=== PATIENT | female | born 1935 | race Hispanic/Latino ===

== ENCOUNTER 2017-01-21 04:24 | Observation (INO) | payer MEDICARE ==
--- NOTE | 2017-01-21 04:37 | C.PDOC ---
History Of Present Illness Patient woke up and felt her heart racing and that her blood pressure was elevated. No chest pain, no visual changes. Speaking. in complete sentences No fever, chills, nausea or vomiting. Time Seen by Provider: 01/21/17 04:37 History Per: Patient History/Exam Limitations: no limitations Onset/Duration Of Symptoms: Mins Current Symptoms Are (Timing): Better Associated Symptoms: Dizziness, Other (palpitations). denies: Chest Pain, Dyspnea Quality Of Symptoms: Rapid Heart Rate Severity: Moderate Pain Scale Rating Of: 4 Exacerbating Factor(s): Pos: None Recent travel outside of the [place]: No Additional History Per: Family Past Medical History Reviewed: Historical Data, Nursing Documentation, Vital Signs Vital Signs: Last Vital Signs Temp 97.7 F 01/21/17 04:30 Pulse 74 01/21/17 05:54 Resp 19 01/21/17 05:54 BP 155/68 H 01/21/17 05:54 Pulse Ox 97 01/21/17 05:54 - Medical History PMH: HTN, Hypercholesterolemia - [facility] Procedures LEFT HEART CARDIAC CATH (04/15/13) LT HEART ANGIOCARDIOGRAM (04/15/13) Family History: States: No Known Family Hx - Social History Hx Tobacco Use: No Hx Alcohol Use: No Hx Substance Use: No - Immunization History Hx Tetanus Toxoid Vaccination: No Hx Influenza Vaccination: No Hx Pneumococcal Vaccination: No Review Of Systems Constitutional: Negative for: Fever, Chills Eyes: Negative for: Redness ENT: Negative for: Throat Pain Cardiovascular: Positive for: Palpitations. Negative for: Chest Pain Respiratory: Negative for: Shortness of Breath Gastrointestinal: Negative for: Nausea, Vomiting, Abdominal Pain Genitourinary: Negative for: Dysuria Musculoskeletal: Negative for: Back Pain Skin: Negative for: Rash, Lesions Neurological: Negative for: Weakness Psych: Negative for: Anxiety Physical Exam - Physical Exam Appears: Non-toxic, No Acute Distress Skin: Warm, Dry Head: Normacephalic Eye(s): bilateral: Normal Inspection Oral Mucosa: Moist Neck: Trachea Midline, Supple Chest: Symmetrical Cardiovascular: Rhythm Regular Respiratory: No Rales, No Rhonchi, No Wheezing Gastrointestinal/Abdominal: Soft, No Tenderness, No Distention Back: No CVA Tenderness Extremity: Normal ROM, No Tenderness Extremity: Bilateral: Atraumatic, No Pedal Edema, Normal Color And Temperature, Normal ROM Pulses: Left Dorsalis Pedis: Normal, Right Dorsalis Pedis: Normal Neurological/Psych: Oriented x3, Normal Speech, Normal Cognition Gait: Steady ED Course And Treatment - Laboratory Results Result Diagrams: 01/21/17 05:18 01/21/17 05:04 ECG: Interpreted By Me, Viewed By Me ECG Rhythm: Sinus Rhythm (107), Nonspecific Changes O2 Sat by Pulse Oximetry: 98 Pulse Ox Interpretation: Normal - Radiology CXR: Interpreted by Me, Viewed By Me CXR Interpretation: No: Infiltrates, Fracture, Pnemothorax Disposition Discussed With : Freeman Rossi Comment: accepted the pt on his service and took over the care at 5:58AM Doctor Will See Patient In The: ED Counseled Patient/Family Regarding: Studies Performed, Diagnosis - Disposition Disposition: HOSPITALIZED Disposition Time: 04:37 Condition: FAIR - POA Present On Arrival: Poor Glycemic Control - Clinical Impression Clinical Impression: Abnormal blood pressure, Hypertension, Palpitations Decision To Admit - Pt Status Changed To: Hospital Disposition Of: Observation - . Bed Request Type: Telemetry Admitting Physician: Freeman Rossi Patient Diagnosis: Abnormal blood pressure, Hypertension, Palpitations
[2017-01-21] MEDS ORDERED: Labetalol 5 mg/ml Inj 20ML IV STA (04:49)
[2017-01-21 05:23] LABS: BASO # 0.1 K/uL (0.0-0.2); BASO % 0.9 % (0.0-2.0); EOS # 0.1 K/uL (0.0-0.7); EOS % 1.5 % (0.0-4.0); HEMATOCRIT 36.3 % (34.0-47.0); LYMPH # 2.8 K/uL (1.0-4.3); LYMPH % 30.8 % (20.0-40.0); MEAN CELL VOLUME 89.5 fL (81.0-99.0); MEAN CORPUSCULAR HEMOGLOBIN 30.1 pg (27.0-31.0); MEAN CORPUSCULAR HGB CONC 33.6 g/dL (33.0-37.0); MEAN PLATELET VOLUME 9.3 fL (7.2-11.7); MONO # 0.6 K/uL (0.0-0.8); MONO % 6.6 % (0.0-10.0); RED CELL DISTRIBUTION WIDTH 13.4 % (11.5-14.5); WHITE BLOOD COUNT 9.1 K/uL (4.8-10.8)
[2017-01-21 05:23] LABS: CHLORIDE 101 mmol/L (98-107)
[2017-01-21 05:24] LABS: POTASSIUM 3.7 mmol/L (3.6-5.2); SODIUM 139 mmol/L (132-148)
[2017-01-21 05:26] LABS: ALB/GLOB RATIO 1.3 (1.0-2.1); AST/SGOT 34 U/L (14-36); BILIRUBIN,TOTAL 0.9 mg/dL (0.2-1.3); BLOOD UREA NITROGEN 20 mg/dL (7-17); CARBON DIOXIDE 23 mmol/L (22-30); GFR AFRICAN-AMERICAN > 60; TOTAL PROTEIN 7.8 g/dL (6.3-8.3)
[2017-01-21 05:27] LABS: ALKALINE PHOSPHATASE 48 U/L (38-126); ALT/SGPT 26 U/L (9-52); CALCIUM 9.5 mg/dl (8.6-10.4); GLUCOSE,RANDOM 128 mg/dL (65-105)
[2017-01-21 05:29] LABS: RBC URINE 1 /hpf (0-3); URINE BILIRUBIN NEGATIVE (NEGATIVE); URINE BLOOD 1+ (NEGATIVE); URINE COLOR Yellow (YELLOW); URINE GLUCOSE (UA) NORMAL (Normal); URINE KETONE NEGATIVE (NEGATIVE); URINE LEUKOCYTE ESTERASE TRACE Leu/uL (Negative); URINE PROTEIN 1+ mg/dL (NEGATIVE); URINE UROBILINOGEN NORMAL mg/dL (0.2-1.0); WBC URINE 3 /hpf (0-5)
--- NOTE | 2017-01-21 09:38 | RAD ---
PROCEDURE: CHEST RADIOGRAPH, 1 VIEW HISTORY: chest pain COMPARISON: Comparison chest dated 05/01/2016 FINDINGS: LUNGS: Clear. PLEURA: No pneumothorax or pleural fluid seen. CARDIOVASCULAR: Mild calcification of the aortic valve. OSSEOUS STRUCTURES: Mild degenerative changes both shoulder girdles. Mild multilevel degenerative spondylosis of the thoracic spine. VISUALIZED UPPER ABDOMEN: Normal. OTHER FINDINGS: None. IMPRESSION: No active disease.
--- NOTE | 2017-01-21 17:49 | CP.PCM.HP ---
History of Present Illness - History of Present Illness History of Present Illness: Chief complaint: Palpitations History present illness: 81-year-old female with history of hypertension hypercholesteremia renal insufficiency came to the emergency room with the sudden onset of palpitation. Patient was doing well. Suddenly around 11 PM patient started having some discomfort. The blood pressure was noted to be normal at the time, later at midnight the patient again suddenly developed a significant palpitation, and the midchest. At the time the blood pressure was noted to be more than 200, immediately patient was taken to the emergency room by the family member. In the emergency room patient was evaluated, at the time patient did not have any chest pain, palpitation was not there. She felt slightly nauseated, and minimal dizziness, but no chest pain in the emergency room. Patient did not have any hospitalization in the past. Not clear at this time but it initiated. She went to eat outside with her friend yesterday. Past medical history: Hypertension high cholesterol renal insufficiency Allergy: No known drug allergy Personal history: Nonsmoker nonalcoholic. Family history: Father natural cause, diabetes. Mother at the age of 75 with a heart disease. Patient's current medication amlodipine, metoprolol, Benicar hydrochlorothiazide , fenofibrate Review of system: Currently patient is having no headache or visual symptom no chest pain or shortness of breath denies any nausea vomiting, no leg swelling Vital signs reviewed No neck vein distention noted Chest good air entry bilaterally, no wheezing or rales noted CVS regular heart sound, no murmur noted Abdomen soft, nontender. 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 Assessment and recommendation: 84-year-old female with history of hypertension and hypercholesteremia renal insufficiency admitted with palpitation. Sudden onset heart arrhythmias. Underlying atrial arrhythmia cannot be ruled out. Cardiology valuation. We will get EP evaluation if needed. We'll monitor the heart enzymes. I will follow the patient Present on Admission - Present on Admission Any Indicators Present on Admission: No History of DVT/PE: No History of Uncontrolled Diabetes: No Urinary Catheter: No Decubitus Ulcer Present: No Past Patient History - Past Medical History & Family History Past Medical History?: Yes - Past Social History Smoking Status: Never Smoked - CARDIAC Hx Cardiac Disorders: Yes Hx Hypercholesterolemia: Yes Hx Hypertension: Yes - PULMONARY Hx Respiratory Disorders: No - NEUROLOGICAL Hx Neurological Disorder: No - HEENT Hx HEENT Problems: Yes Hx Cataracts: Yes - RENAL Hx Chronic Kidney Disease: No - ENDOCRINE/METABOLIC Hx Endocrine Disorders: No - HEMATOLOGICAL/ONCOLOGICAL Hx Blood Disorders: No - INTEGUMENTARY Hx Dermatological Problems: No - MUSCULOSKELETAL/RHEUMATOLOGICAL Hx Musculoskeletal Disorders: No Hx Falls: No - GASTROINTESTINAL Hx Gastrointestinal Disorders: No - GENITOURINARY/GYNECOLOGICAL Hx Genitourinary Disorders: No - PSYCHIATRIC Hx Psychophysiologic Disorder: No Hx Substance Use: No - SURGICAL HISTORY Hx Surgeries: Yes Hx Cataract Extraction: Yes - ANESTHESIA Hx Anesthesia: Yes Hx Anesthesia Reactions: No Hx Malignant Hyperthermia: No Meds Allergies/Adverse Reactions: Allergies Allergy/AdvReac Type Severity Reaction Status Date / Time No Known Allergies Allergy Verified 04/05/13 11:03 Results - Vital Signs Recent Vital Signs: Last Vital Signs Temp 98.1 F 01/21/17 15:05 Pulse 68 01/21/17 15:05 Resp 20 01/21/17 15:05 BP 107/61 01/21/17 15:05 Pulse Ox 95 01/21/17 15:05 - Labs Result Diagrams: 01/21/17 05:18 01/21/17 05:04
[2017-01-22 06:30] LABS: BASO % 0.5 % (0.0-2.0); EOS # 0.2 K/uL (0.0-0.7); EOS % 2.4 % (0.0-4.0); HEMATOCRIT 33.6 % (34.0-47.0); LYMPH # 3.9 K/uL (1.0-4.3); LYMPH % 45.4 % (20.0-40.0); MEAN CELL VOLUME 89.4 fL (81.0-99.0); MEAN CORPUSCULAR HEMOGLOBIN 30.2 pg (27.0-31.0); MEAN CORPUSCULAR HGB CONC 33.8 g/dL (33.0-37.0); MEAN PLATELET VOLUME 9.6 fL (7.2-11.7); MONO # 0.6 K/uL (0.0-0.8); MONO % 6.6 % (0.0-10.0); RED CELL DISTRIBUTION WIDTH 13.6 % (11.5-14.5); WHITE BLOOD COUNT 8.6 K/uL (4.8-10.8)
[2017-01-22 07:15] LABS: CHLORIDE 103 mmol/L (98-107); POTASSIUM 3.6 mmol/L (3.6-5.2); SODIUM 141 mmol/L (132-148)
[2017-01-22 07:17] LABS: BILIRUBIN,TOTAL 0.5 mg/dL (0.2-1.3); CARBON DIOXIDE 26 mmol/L (22-30); GFR AFRICAN-AMERICAN > 60
[2017-01-22 07:18] LABS: ALB/GLOB RATIO 1.1 (1.0-2.1); ALKALINE PHOSPHATASE 39 U/L (38-126); ALT/SGPT 27 U/L (9-52); AST/SGOT 20 U/L (14-36); BLOOD UREA NITROGEN 16 mg/dL (7-17); CALCIUM 8.8 mg/dl (8.6-10.4); GLUCOSE,RANDOM 93 mg/dL (65-105); TOTAL PROTEIN 6.5 g/dL (6.3-8.3)
[2017-01-22 11:52] VITALS: RESP 20
--- NOTE | 2017-01-22 16:52 | CP.PCM.PN ---
Subjective - Date & Time of Evaluation Date of Evaluation: 01/22/17 Time of Evaluation: 16:51 - Subjective Subjective: DISCUSSED PLAN FOR DISPOSITION WITH DR. GUERRA. WILL D/C PT HOME ONCE SEEN AND CLEARED BY DR. NASSAR. LEFT MESSAGE FOR DR. 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 NO HOME SERVICES OR NEEDS NECESSARY PER CM ASSESSMENT. WILL F/U WITH DR. NASSAR AND PLAN FOR D/C HOME TOMORROW. NO FURTHER ORDERS. Objective - Vital Signs/Intake and Output Vital Signs (last 24 hours): Temp Pulse Resp BP Pulse Ox 98.3 F 72 20 146/84 96 01/22/17 15:05 01/22/17 15:05 01/22/17 15:05 01/22/17 15:05 01/22/17 15:05 Intake and Output: 01/22/17 01/22/17 06:59 18:59 Intake Total 600 400 Balance 600 400 - Medications Medications: Current Medications Aspirin (Aspirin Chewable) 81 mg PO DAILY [facility] Last Admin: 01/22/17 09:07 Dose: 81 mg Heparin Sodium (Porcine) (Heparin) 5,000 units SC Q8 [facility] Last Admin: 01/22/17 14:26 Dose: 5,000 units Metoprolol Tartrate (Lopressor) 25 mg PO BID [facility] Last Admin: 01/22/17 09:08 Dose: 25 mg Rosuvastatin Calcium (Crestor) 10 mg PO HS [facility] Last Admin: 01/21/17 22:49 Dose: 10 mg - Labs Labs: 01/22/17 06:07 01/22/17 06:07 PT 10.7 SECONDS (9.7-12.2) 01/21/17 05:04 INR 1.0 01/21/17 05:04 APTT 30 SECONDS (21-34) 01/21/17 05:04
--- NOTE | 2017-01-22 21:09 | CP.PCM.PN ---
Subjective - Date & Time of Evaluation Date of Evaluation: 01/22/17 Time of Evaluation: 21:08 - Subjective Subjective: Patient to currently feeling better. No chest pain or shortness of breath. Still awaiting for the cardiology evaluation. Blood pressure stable. Vital signs reviewed No neck vein distention noted Chest good air entry bilaterally, no wheezing or rales noted CVS regular heart sound, no murmur noted Abdomen soft, nontender. 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 So for evaluation is negative, one superior but the cardiology can be discharged home will follow the patient Objective - Vital Signs/Intake and Output Vital Signs (last 24 hours): Temp Pulse Resp BP Pulse Ox 98.3 F 72 20 146/84 96 01/22/17 15:05 01/22/17 15:05 01/22/17 15:05 01/22/17 15:05 01/22/17 15:05 Intake and Output: 01/22/17 01/23/17 18:59 06:59 Intake Total 400 Balance 400 - Medications Medications: Current Medications Aspirin (Aspirin Chewable) 81 mg PO DAILY [facility]CLUDE 234 BEDS AT [facility] Last Admin: 01/22/17 09:07 Dose: 81 mg Heparin Sodium (Porcine) (Heparin) 5,000 units SC Q8 [facility]S INCLUDE 234 BEDS AT THE [facility] Last Admin: 01/22/17 14:26 Dose: 5,000 units Metoprolol Tartrate (Lopressor) 25 mg PO BID [facility]S INCLUDE 234 BEDS AT THE [facility] Last Admin: 01/22/17 09:08 Dose: 25 mg Rosuvastatin Calcium (Crestor) 10 mg PO HS COUNTS INCLUDE 234 BEDS AT THE [facility] Last Admin: 01/21/17 22:49 Dose: 10 mg - Labs Labs: 01/22/17 06:07 01/22/17 06:07 PT 10.7 SECONDS (9.7-12.2) 01/21/17 05:04 INR 1.0 01/21/17 05:04 APTT 30 SECONDS (21-34) 01/21/17 05:04
[2017-01-23 09:02] VITALS: TEMP 97.6; O2SAT 94
[2017-01-23 09:11] VITALS: BP 147/77
[2017-01-23 12:45] VITALS: PULSE 73
--- NOTE | 2017-01-23 17:15 | CP.PCM.CON ---
History of Present Illness - History of Present Illness History of Present Illness: 81 F with Hx of HTN admitted for palpitations and dizziness and elevated HTN Denies chest pain and dyspnea Review of Systems - Cardiovascular Cardiovascular: absent: Chest Pain - Respiratory Respiratory: absent: Dyspnea - Gastrointestinal Gastrointestinal: absent: Abdominal Pain - Neurological Neurological: As Per HPI Past Patient History - Past Medical History & Family History Past Medical History?: Yes - Past Social History Smoking Status: Never Smoked - CARDIAC Hx Hypercholesterolemia: Yes Hx Hypertension: Yes - PULMONARY Hx Respiratory Disorders: No - NEUROLOGICAL Hx Neurological Disorder: No - HEENT Hx HEENT Problems: Yes Hx Cataracts: Yes - RENAL Hx Chronic Kidney Disease: No - ENDOCRINE/METABOLIC Hx Endocrine Disorders: No - HEMATOLOGICAL/ONCOLOGICAL Hx Blood Disorders: No - INTEGUMENTARY Hx Dermatological Problems: No - MUSCULOSKELETAL/RHEUMATOLOGICAL Hx Musculoskeletal Disorders: No Hx Falls: No - GASTROINTESTINAL Hx Gastrointestinal Disorders: No - GENITOURINARY/GYNECOLOGICAL Hx Genitourinary Disorders: No - PSYCHIATRIC Hx Psychophysiologic Disorder: No Hx Substance Use: No - SURGICAL HISTORY Hx Surgeries: Yes Hx Cataract Extraction: Yes - ANESTHESIA Hx Anesthesia: Yes Hx Anesthesia Reactions: No Hx Malignant Hyperthermia: No Meds Allergies/Adverse Reactions: Allergies Allergy/AdvReac Type Severity Reaction Status Date / Time No Known Allergies Allergy Verified 04/05/13 11:03 Physical Exam - Head Exam Head Exam: ATRAUMATIC, NORMAL INSPECTION - Eye Exam Eye Exam: EOMI, PERRL Pupil Exam: NORMAL ACCOMODATION - ENT Exam ENT Exam: Mucous Membranes Moist, Normal Exam - Neck Exam Neck exam: Positive for: Normal Inspection - Respiratory Exam Respiratory Exam: Clear to Auscultation Bilateral, NORMAL BREATHING PATTERN - Cardiovascular Exam Cardiovascular Exam: REGULAR RHYTHM, +S1, +S2 - GI/Abdominal Exam GI & Abdominal Exam: Normal Bowel Sounds, Soft - Neurological Exam Neurological exam: Alert, CN II-XII Intact, Reflexes Normal - Psychiatric Exam Psychiatric exam: Normal Mood - Skin Skin Exam: Warm Results - Vital Signs Recent Vital Signs: Last Vital Signs Temp 97.6 F 01/23/17 07:00 Pulse 73 01/23/17 12:45 Resp 20 01/23/17 07:00 BP 147/77 01/23/17 09:10 Pulse Ox 94 L 01/23/17 07:00 - Labs Result Diagrams: 01/22/17 06:07 01/22/17 06:07 Assessment & Plan - Assessment and Plan (Free Text) Assessment: 1. Uncontrolled HTN, Palpitations and dizziness So far work up negative Trops and EKG normal Recommend out patient management for now
--- NOTE | 2017-01-23 17:46 | CARD ---
APPROVED REPORT EXAM: Two-dimensional and M-mode echocardiogram with Doppler and color Doppler. Other Information Quality : GoodRhythm : INDICATION Chest Pain Palpitations RISK FACTORS Hypertension 2D DIMENSIONS IVSd0.8 (0.7-1.1cm)Aortic Root (2D)3.0 (2.0-3.7cm) LVDd4.8 (3.9-5.9cm)PWd0.9 (0.7-1.1cm) LVDs3.0 (2.5-4.0cm)FS (%) 37.7 % LVEF (%)67.7 (>50%) M-Mode DIMENSIONS RVDd2.70 (2.1-3.2cm)Left Atrium (MM)3.71 (2.5-4.0cm) IVSd1.01 (0.7-1.1cm)Aortic Root2.90 (2.2-3.7cm) LVDd4.95 (4.0-5.6cm)Aortic Cusp Exc.1.72 (1.5-2.0cm) PWd0.88 (0.7-1.1cm)FS (%) 41 % LVDs2.93 (2.0-3.8cm) Aortic Valve AI P 1/2 [id number] Mitral Valve MV E Wnxhviub44.3cm/sMV A Gfjvxvda271.0cm/sE/A ratio0.8 TDI E/Lateral E'0.0E/Medial E'0.0 Tricuspid Valve TR Peak Esmxweln775nr/sTR Peak Gr.[id number] LEFT VENTRICLE The left ventricle is normal size. There is normal left ventricular wall thickness. The left ventricular function is normal. The left ventricular ejection fraction is within the normal range. There is normal LV segmental wall motion. Transmitral Doppler flow pattern is Grade I-abnormal relaxation pattern. No left ventricle thrombus noted on this study. RIGHT VENTRICLE The right ventricle is normal size. There is normal right ventricular wall thickness. The right ventricular systolic function is normal. ATRIA The left atrium size is normal. The right atrium size is normal. AORTIC VALVE The aortic valve is mildly thickened. There is mild aortic regurgitation. MITRAL VALVE The mitral valve is normal in structure. Mitral regurgitation is trace. TRICUSPID VALVE There is mild pulmonary hypertension. GREAT VESSELS The aortic root is normal in size. The IVC collapses <50% with inspiration. <Conclusion> The left ventricle is normal size. There is normal left ventricular wall thickness. The left ventricular function is normal. The left ventricular ejection fraction is within the normal range. There is normal LV segmental wall motion. Transmitral Doppler flow pattern is Grade I-abnormal relaxation pattern. There is mild aortic regurgitation. There is mild pulmonary hypertension.
--- NOTE | 2017-01-25 16:22 | CARD ---
APPROVED REPORT EKG Measurement Heart [id number] <Conclusion> Sinus tachycardia Nonspecific ST and T wave abnormality Abnormal ECG
== END 2017-01-23 16:45 | disposition home or self-care (01) ==
LOC: C.ER 04:24 → C.9E 05:57 → C.6T 11:40
PROVIDERS: ADMIT Internal Medicine; ATTEND Internal Medicine
DX: I10 Essential (primary) hypertension (principal); E78.00 Pure hypercholesterolemia, unspecified; R00.2 Palpitations
CPT/HCPCS: 36415; 71010; 80053; 81001; 84484; 85025; 85610; 85730; 93306; 97116; 97161; 97530; 99285; G0378; G8978; G8979; G8980; J1644

== ENCOUNTER 2017-01-24 08:48 | Emergency (ER) | payer MEDICARE ==
--- NOTE | 2017-01-24 10:15 | C.PDOC ---
History Of Present Illness 81 yr old female sent to ER from Dr. Rossi's office for evaluation of elevated blood pressure. Patient states her systolic Bp was > 200 this morning when she checked at home. Patient does admit to drinking coffee this morning and is unsure if that is the cause. Patient is compliant with her Metoprolol, and was recently discharged from hospital for poorly controlled HTN. She states she changes were made to her medications. She denies chest pain, SOB, cough, fever, abdominal pain, headache, dizziness, nausea. Time Seen by Provider: 01/24/17 08:56 Chief Complaint (Nursing): High Blood Pressure History Per: Patient History/Exam Limitations: no limitations Onset/Duration Of Symptoms: Sudden Onset (Since morning ) Current Symptoms Are (Timing): Better Associated Symptoms: denies: Chest Pain, Dyspnea, Dizziness, Blurred Vision, Focal Weakness, Headache, Other Quality Of Symptoms: Asymptomatic Past Medical History Reviewed: Historical Data, Nursing Documentation, Vital Signs Vital Signs: Last Vital Signs Temp 98.0 F 01/24/17 11:01 Pulse 61 01/24/17 11:01 Resp 12 01/24/17 11:01 BP 176/82 H 01/24/17 11:01 Pulse Ox 98 01/24/17 13:29 - Medical History PMH: HTN, Hypercholesterolemia - [facility] Procedures LEFT HEART CARDIAC CATH (04/15/13) LT HEART ANGIOCARDIOGRAM (04/15/13) Family History: States: No Known Family Hx - Social History Hx Tobacco Use: No Hx Alcohol Use: No Hx Substance Use: No - Immunization History Hx Tetanus Toxoid Vaccination: No Hx Influenza Vaccination: No Hx Pneumococcal Vaccination: No Review Of Systems Except As Marked, All Systems Reviewed And Found Negative. Constitutional: Negative for: Fever Cardiovascular: Negative for: Chest Pain, Palpitations Respiratory: Negative for: Shortness of Breath Gastrointestinal: Negative for: Nausea, Vomiting Neurological: Negative for: Weakness, Numbness, Altered Mental Status, Headache , Dizziness Physical Exam - Physical Exam Appears: Well, Non-toxic, No Acute Distress Skin: Warm, Dry, No Rash Head: Normacephalic Eye(s): bilateral: Normal Inspection, PERRL, EOMI Oral Mucosa: Moist Neck: Supple Cardiovascular: Rhythm Regular Respiratory: Normal Breath Sounds, No Rales, No Rhonchi, No Wheezing Gastrointestinal/Abdominal: Normal Exam, Bowel Sounds, Soft, No Tenderness Extremity: Normal ROM, No Swelling Neurological/Psych: Oriented x3, Normal Speech, Normal Cognition, Normal Cranial Nerves, No Cerebellar Signs, Normal Motor, Normal Sensation Gait: Steady ED Course And Treatment ECG: Interpreted By Me, Viewed By Me (sinus rhythm 67 bpm, left axis deviation, T wave inversion V3, no acute ST changes) ECG Rhythm: Sinus Rhythm ECG Interpretation: Normal, No Changes From Prior O2 Sat by Pulse Oximetry: 98 (RA ) Pulse Ox Interpretation: Normal Progress Note: EKG ordered and reviewed. Discussed patient with Dr. Rossi, who evaluated patient in ED. She was given PO Losartan and instructed to follow up with him in the office. Patient understands she should return to ED if she has any concerning symptoms. Reevaluation Time: 10:50 Reassessment Condition: Improved Disposition Counseled Patient/Family Regarding: Diagnosis, Need For Followup - Disposition Referrals: Freeman Rossi MD [Staff Provider] - Disposition: HOME/ ROUTINE Disposition Time: 11:00 Condition: STABLE Additional Instructions: FOLLOW UP WITH YOUR DOCTOR IN 1-2 DAYS USE YOUR BLOOD PRESSURE DIRECTED RETURN TO EMERGENCY ROOM IF SYMPTOMS WORSEN Instructions: Hypertension (ED) Forms: [employer] (Brazilian) Print Language: VINCENTIAN - POA Present On Arrival: None - Clinical Impression Clinical Impression: Hypertension - Scribe Statement The provider has reviewed the documentation as recorded by the Loidaibe Nahed Khan Provider Attestation: All medical record entries made by the Loidaibe were at my direction and personally dictated by me. I have reviewed the chart and agree that the record accurately reflects my personal performance of the history, physical exam, medical decision making, and the department course for this patient. I have also personally directed, reviewed, and agree with the discharge instructions and disposition.
[2017-01-24 11:02] VITALS: BP 176/82; PULSE 61; RESP 12; TEMP 98
--- NOTE | 2017-01-24 11:05 | CP.PCM.CON ---
History of Present Illness - History of Present Illness History of Present Illness: 81 yr old female sent to ER from Dr. Rossi's office for evaluation of elevated blood pressure. Patient states her systolic Bp was > 200 this morning when she checked at home. Patient does admit to drinking coffee this morning and is unsure if that is the cause. Patient is compliant with her Metoprolol, and was recently discharged from hospital for poorly controlled HTN. She states she changes were made to her medications. She denies chest pain, SOB, cough, fever, abdominal pain, headache, dizziness, nausea. Time Seen by Provider: 01/24/17 08:56 Chief Complaint (Nursing): High Blood Pressure History Per: Patient History/Exam Limitations: no limitations Onset/Duration Of Symptoms: Sudden Onset (Since morning ) Current Symptoms Are (Timing): Better Associated Symptoms: denies: Chest Pain, Dyspnea, Dizziness, Blurred Vision, Focal Weakness, Headache, Other Quality Of Symptoms: Asymptomatic Past Medical History Reviewed: Historical Data, Nursing Documentation, Vital Signs Vital Signs: Last Vital Signs Temp 98.0 F 01/24/17 11:01 Pulse 61 01/24/17 11:01 Resp 12 01/24/17 11:01 BP 176/82 H 01/24/17 11:01 Pulse Ox 98 01/24/17 13:29 - Medical History PMH: HTN, Hypercholesterolemia - [facility] Procedures LEFT HEART CARDIAC CATH (04/15/13) LT HEART ANGIOCARDIOGRAM (04/15/13) Family History: States: No Known Family Hx - Social History Hx Tobacco Use: No Hx Alcohol Use: No Hx Substance Use: No - Immunization History Hx Tetanus Toxoid Vaccination: No Hx Influenza Vaccination: No Hx Pneumococcal Vaccination: No Review Of Systems Except As Marked, All Systems Reviewed And Found Negative. Constitutional: Negative for: Fever Cardiovascular: Negative for: Chest Pain, Palpitations Respiratory: Negative for: Shortness of Breath Gastrointestinal: Negative for: Nausea, Vomiting Neurological: Negative for: Weakness, Numbness, Altered Mental Status, Headache , Dizziness Physical Exam - Physical Exam Appears: Well, Non-toxic, No Acute Distress Skin: Warm, Dry, No Rash Head: Normacephalic Eye(s): bilateral: Normal Inspection, PERRL, EOMI Oral Mucosa: Moist Neck: Supple Cardiovascular: Rhythm Regular Respiratory: Normal Breath Sounds, No Rales, No Rhonchi, No Wheezing Gastrointestinal/Abdominal: Normal Exam, Bowel Sounds, Soft, No Tenderness Extremity: Normal ROM, No Swelling Neurological/Psych: Oriented x3, Normal Speech, Normal Cognition, Normal Cranial Nerves, No Cerebellar Signs, Normal Motor, Normal Sensation Gait: Steady ED Course And Treatment ECG: Interpreted By Me, Viewed By Me (sinus rhythm 67 bpm, left axis deviation, T wave inversion V3, no acute ST changes) ECG Rhythm: Sinus Rhythm ECG Interpretation: Normal, No Changes From Prior O2 Sat by Pulse Oximetry: 98 (RA ) Pulse Ox Interpretation: Normal Progress Note: EKG ordered and reviewed. Discussed patient with Dr. Rossi, who evaluated patient in ED. She was given PO Losartan and instructed to follow up with him in the office. Patient understands she should return to ED if she has any concerning symptoms. Reevaluation Time: 10:50 Reassessment Condition: Improved Disposition Counseled Patient/Family Regarding: Diagnosis, Need For Followup - Disposition Referrals: Freeman Rossi MD [Staff Provider] - Disposition: HOME/ ROUTINE Disposition Time: 11:00 Condition: STABLE Additional Instructions: FOLLOW UP WITH YOUR DOCTOR IN 1-2 DAYS USE YOUR BLOOD PRESSURE DIRECTED RETURN TO EMERGENCY ROOM IF SYMPTOMS WORSEN Instructions: Hypertension (ED) Forms: [employer] (Greek) Print Language: [place] - POA Present On Arrival: None - Clinical Impression Clinical Impression: Hypertension Past Patient History - Past Medical History & Family History Past Medical History?: Yes - Past Social History Smoking Status: Never Smoked - CARDIAC Hx Hypercholesterolemia: Yes Hx Hypertension: Yes - PULMONARY Hx Respiratory Disorders: No - NEUROLOGICAL Hx Neurological Disorder: No - HEENT Hx HEENT Problems: Yes Hx Cataracts: Yes - RENAL Hx Chronic Kidney Disease: No - ENDOCRINE/METABOLIC Hx Endocrine Disorders: No - HEMATOLOGICAL/ONCOLOGICAL Hx Blood Disorders: No - INTEGUMENTARY Hx Dermatological Problems: No - MUSCULOSKELETAL/RHEUMATOLOGICAL Hx Musculoskeletal Disorders: No Hx Falls: No - GASTROINTESTINAL Hx Gastrointestinal Disorders: No - GENITOURINARY/GYNECOLOGICAL Hx Genitourinary Disorders: No - PSYCHIATRIC Hx Substance Use: No - SURGICAL HISTORY Hx Surgeries: Yes Hx Cataract Extraction: Yes - ANESTHESIA Hx Anesthesia: Yes Hx Anesthesia Reactions: No Hx Malignant Hyperthermia: No Meds Allergies/Adverse Reactions: Allergies Allergy/AdvReac Type Severity Reaction Status Date / Time No Known Allergies Allergy Verified 01/24/17 08:51 - Medications Medications: Current Medications Losartan Potassium (Cozaar) 50 mg PO ONCE STA Stop: 01/24/17 11:05 Results - Vital Signs Recent Vital Signs: Last Vital Signs Temp 98.0 F 01/24/17 11:01 Pulse 61 01/24/17 11:01 Resp 12 01/24/17 11:01 BP 176/82 H 01/24/17 11:01 Pulse Ox 96 01/24/17 11:01
[2017-01-24 13:29] VITALS: O2SAT 98
--- NOTE | 2017-01-27 18:12 | CARD ---
APPROVED REPORT EKG Measurement Heart [id number] <Conclusion> Normal sinus rhythm Anterior infarct, age undetermined Abnormal ECG
== END 2017-01-24 11:08 | disposition home or self-care (01) ==
LOC: C.ER 08:48
DX: I10 Essential (primary) hypertension (principal)

== ENCOUNTER 2017-01-24 23:17 | Emergency (ER) | payer MEDICARE ==
[2017-01-24 23:42] VITALS: TEMP 98.3; O2SAT 98
--- NOTE | 2017-01-25 00:55 | C.PDOC ---
History Of Present Illness 81 y/o female c/o anxiety and high blood pressure. Denies nausea, vomiting, visual changes, weakness, numbness, palpitations, diaphoresis, or chest pain. Time Seen by Provider: 01/25/17 00:55 Chief Complaint (Nursing): High Blood Pressure History Per: Patient History/Exam Limitations: no limitations Onset/Duration Of Symptoms: Hrs Current Symptoms Are (Timing): Still Present Associated Symptoms: denies: Chest Pain Severity: Mild Exacerbating Factor(s): Pos: None Recent travel outside of the [place]: No Additional History Per: Patient Past Medical History Reviewed: Historical Data, Nursing Documentation, Vital Signs Vital Signs: Last Vital Signs Temp 98.3 F 01/24/17 23:39 Pulse 69 01/24/17 23:39 Resp 20 01/24/17 23:39 BP 194/90 H 01/24/17 23:39 Pulse Ox 98 01/25/17 01:25 - Medical History PMH: HTN, Hypercholesterolemia Denies: Chronic Kidney Disease Surgical History: Appendectomy - [facility] Procedures LEFT HEART CARDIAC CATH (04/15/13) LT HEART ANGIOCARDIOGRAM (04/15/13) Family History: States: Unknown Family Hx - Social History Hx Tobacco Use: No Hx Alcohol Use: No Hx Substance Use: No - Immunization History Hx Tetanus Toxoid Vaccination: No Hx Influenza Vaccination: No Hx Pneumococcal Vaccination: No Review Of Systems Constitutional: Negative for: Fever, Chills, Sweats Eyes: Negative for: Vision Change Cardiovascular: Negative for: Chest Pain, Palpitations Respiratory: Negative for: Shortness of Breath Gastrointestinal: Negative for: Nausea, Vomiting Genitourinary: Negative for: Dysuria Musculoskeletal: Negative for: Back Pain Skin: Negative for: Rash Neurological: Negative for: Weakness, Numbness Psych: Positive for: Anxiety Physical Exam - Physical Exam Appears: Non-toxic, No Acute Distress, Other (Anxious) Skin: Warm, Dry Head: Normacephalic Eye(s): bilateral: Normal Inspection Oral Mucosa: Moist Neck: Trachea Midline, Supple Cardiovascular: Rhythm Regular Respiratory: No Rales, No Rhonchi, No Wheezing Gastrointestinal/Abdominal: Soft, No Tenderness Back: No CVA Tenderness Extremity: No Tenderness Extremity: Bilateral: Atraumatic Neurological/Psych: Oriented x3, Normal Speech, Normal Cognition Gait: Steady ED Course And Treatment O2 Sat by Pulse Oximetry: 98 (RA) Pulse Ox Interpretation: Normal Progress Note: repeat bp 130/70. pt wants to go home Reevaluation Time: 02:18 Reassessment Condition: Improved Disposition Counseled Patient/Family Regarding: Studies Performed, Diagnosis, Need For Followup - Disposition Referrals: Freeman Rossi MD [Staff Provider] - Disposition: HOME/ ROUTINE Disposition Time: 00:55 Condition: FAIR Instructions: Hypertension (DC) Forms: [employer] (Citizen [place]) - Clinical Impression Clinical Impression: Hypertension - Scribe Statement The provider has reviewed the documentation as recorded by the Scribe Ryan alcantar All medical record entries made by the Scribe were at my direction and personally dictated by me. I have reviewed the chart and agree that the record accurately reflects my personal performance of the history, physical exam, medical decision making, and the department course for this patient. I have also personally directed, reviewed, and agree with the discharge instructions and disposition.
[2017-01-25 02:37] VITALS: BP 150/90; PULSE 80; RESP 14
== END 2017-01-25 02:37 | disposition home or self-care (01) ==
LOC: C.ER 23:17
DX: I10 Essential (primary) hypertension (principal)